=== PATIENT | male | born 1935 | race Caucasian/White ===

== ENCOUNTER 2018-08-18 10:36 | Inpatient (IN) ==
[2018-08-18] MEDS ORDERED: MAGNESIUM SULF RIDER 2 GM in PREMIX 1 EACH IV PRN (10:50)
[2018-08-18] MEDS ORDERED: MAGNESIUM SULF RIDER 4 GM in PREMIX 1 EACH IV PRN (10:50)
[2018-08-18] MEDS ORDERED: POTASSIUM CHLORIDE 20 MEQ TABLET PO PRN (10:50)
[2018-08-18] MEDS ORDERED: MORPHINE 4 MG/1 ML VIAL IV PRN (10:50)
[2018-08-18] MEDS ORDERED: ACETAMINOPHEN 325 MG TABLET PO PRN (10:50)
[2018-08-18] MEDS ORDERED: AMIODARONE INJ 450 MG in DEXTROSE 5% 241 ML IV SCH ×2 (12:00→18:00)
[2018-08-18] MEDS ORDERED: ASPIRIN CHEW 81 MG TABLET PO ONE (12:00)
[2018-08-18] MEDS ORDERED: HEPARIN/NACL 0.9% 2 UNITS/ML 1,000 ML IV ONE (12:01)
[2018-08-18] MEDS ORDERED: MIDAZOLAM 2 MG/2 ML VIAL ONE (12:12)
[2018-08-18] MEDS ORDERED: fentaNYL 100 MCG/2 ML VIAL ONE (12:12)
[2018-08-18] MEDS ORDERED: AMIODARONE INJ 150 MG in DEXTROSE 5% 100 ML IV ONE (12:15)
[2018-08-18] MEDS ORDERED: METOPROLOL TARTRATE 5 MG/5 ML VIAL IV ONE (12:26)
[2018-08-18] MEDS ORDERED: AMIODARONE 150 MG/3 ML VIAL ONE (12:48)
[2018-08-18] MEDS ORDERED: PHENYLEPHRINE 50 MG/5 ML VIAL ONE (12:49)
[2018-08-18] MEDS ORDERED: LIDOCAINE 1% 20 ML VIAL ONE (13:25)
[2018-08-18] MEDS ORDERED: DOBUTamine 500 MG/250 ML PREMIX IV PRN (13:52)
[2018-08-18 15:15] LABS: Basophils % 0.4 % (0.0-0.8); Eosinophils # 0.1 10*3/uL (0.0-0.87); Eosinophils % 0.5 % (0.00-10.9); Hematocrit 34.4 VOL% (42.0-52.0); Hemoglobin 10.5 GM/DL (14.0-18.0); Immature Granulocytes % 0.5 %; Immature Granulocytes Absolute 0.05 #; Lymphocytes # 1.8 10*3/uL (1.4-4.0); Lymphocytes % 18.2 % (21.2-54.2); Mean Corpuscular HGB Conc 30.5 GM/DL (32-36); Mean Corpuscular Hemoglobin 30 PG (27-34); Mean Corpuscular Volume 96.6 FL (87-102); Mean Platelet Volume 9.7 FL (9.6-12.0); Monocytes # 1.1 10*3/uL (0.11-0.8); Monocytes % 11.3 % (1.7-12.7); Neutrophils # 6.9 10*3/uL (1.4-7.4); Neutrophils % 69.1 % (38.7-73.9); Platelet Count 179 T/CUMM (130-400); Red Blood Count 3.56 MC/CUMM (3.8-5.5); Red Cell Distribution Width 15.2 % (9.3-17.3); White Blood Count 10.1 T/CUMM (4-12)
[2018-08-18 15:46] LABS: Bilirubin,Total 1.7 MG/DL (0.2-1.0); Calcium 8.3 MG/DL (8.5-10.1); Osmolality,Calculated 278.2 MOS/KG (273-304); Potassium 4.6 MMOL/L (3.5-5.1); Total Protein 6.7 G/DL (6.4-8.3)
[2018-08-18] MEDS: ONDANSETRON 4 MG/2 ML VIAL IV PRN ×2 (17:07→21:31)
[2018-08-18] MEDS ORDERED: RIVAROXABAN 20 MG TABLET PO SCH (21:00)
[2018-08-18] MEDS ORDERED: AMIODARONE 200 MG TABLET PO SCH (21:00)
[2018-08-19] MEDS: PANTOPRAZOLE 40 MG TABLET PO SCH ×2 (01:16→08:51)
[2018-08-19 05:00] LABS: Basophils % 0.1 % (0.0-0.8); Hematocrit 35.1 VOL% (42.0-52.0); Hemoglobin 10.7 GM/DL (14.0-18.0); Immature Granulocytes % 0.9 %; Immature Granulocytes Absolute 0.15 #; Lymphocytes # 0.9 10*3/uL (1.4-4.0); Lymphocytes % 5.2 % (21.2-54.2); Mean Corpuscular HGB Conc 30.5 GM/DL (32-36); Mean Corpuscular Hemoglobin 30 PG (27-34); Mean Corpuscular Volume 98.3 FL (87-102); Mean Platelet Volume 10.6 FL (9.6-12.0); Monocytes # 1.5 10*3/uL (0.11-0.8); Monocytes % 8.7 % (1.7-12.7); Neutrophils # 14.3 10*3/uL (1.4-7.4); Neutrophils % 85.1 % (38.7-73.9); Platelet Count 134 T/CUMM (130-400); Red Blood Count 3.57 MC/CUMM (3.8-5.5); Red Cell Distribution Width 15.3 % (9.3-17.3); White Blood Count 16.9 T/CUMM (4-12)
[2018-08-19 05:47] LABS: Albumin 3.3 G/DL (3.4-5.0); Bilirubin,Total 3.7 MG/DL (0.2-1.0); Calcium 8.7 MG/DL (8.5-10.1); Osmolality,Calculated 282.1 MOS/KG (273-304); Potassium 5.6 MMOL/L (3.5-5.1); Risk Ratio 2.83; Total Protein 6.9 G/DL (6.4-8.3); VLDL CHOLESTEROL 13.6 MG/DL
[2018-08-19] MEDS ORDERED: CARVEDILOL 6.25 MG TABLET PO SCH ×2 (08:30→17:00)
[2018-08-19] MEDS: SERTRALINE 50 MG TABLET PO SCH (08:51)
[2018-08-19] MEDS ORDERED: ASPIRIN CHEW 81 MG TABLET PO SCH (09:00)
[2018-08-19] MEDS: ALBUTEROL/IPRATROPIUM 3 ML NEB RESP TX SCH ×3 (09:08→19:19)
[2018-08-19 09:36] LABS: Apearance,Urine Slightly Hazy (Clear); Bilirubin,Urine Negative (Negative); Blood, Urine Moderate mg/dL (Negative); Glucose,Urine (UA) Negative (Negative); Ketones,Urine Negative (Negative); Mucus,Urine Occasional /LPF (Occasional); Nitrite,Urine Negative (Negative); Protein,Urine 100 MG/DL; RBC,Urine 2 /HPF (0-4); Urine Color Amber (Yellow); Urine Urobilinogen < 2.0 EU/DL (0.2-1.0); WBC,Urine <1 /HPF (0-6)
[2018-08-19] MEDS: CAPTOPRIL 6.25 MG TABLET PO SCH (09:42)
[2018-08-19] MEDS: AMIODARONE 200 MG TABLET PO SCH ×2 (09:43→21:09)
[2018-08-19] MEDS: SODIUM CHLORIDE 0.9% 1,000 ML IV SCH (09:45)
[2018-08-19] MEDS: INSULIN REGULAR 100 UNIT/ML SUBCUT SCH ×3 (11:31→21:09)
[2018-08-19] MEDS ORDERED: GLUCAGON 1 MG VIAL IM PRN (14:38)
[2018-08-19] MEDS ORDERED: DEXTROSE 50% 25 GM/50 ML VIAL IV PRN (14:38)
[2018-08-19 15:37] LABS: Troponin I 0.421 NG/ML (0.00-0.045)
[2018-08-19] MEDS: CARVEDILOL 3.125 MG TABLET PO SCH (21:09)
[2018-08-19] MEDS: APIXABAN 2.5 MG TABLET PO SCH (21:09)
[2018-08-19] MEDS ORDERED: CARVEDILOL 3.125 MG TABLET PO SCH (22:00)
[2018-08-20] MEDS: ALBUTEROL/IPRATROPIUM 3 ML NEB RESP TX SCH ×4 (01:01→19:14)
[2018-08-20 04:23] LABS: Hematocrit 28.1 VOL% (42.0-52.0); Immature Granulocytes % 1.1 %; Immature Granulocytes Absolute 0.13 #; Lymphocytes # 1.1 10*3/uL (1.4-4.0); Lymphocytes % 9.9 % (21.2-54.2); Mean Corpuscular Hemoglobin 30 PG (27-34); Mean Corpuscular Volume 93.4 FL (87-102); Mean Platelet Volume 11.6 FL (9.6-12.0); Monocytes # 0.9 10*3/uL (0.11-0.8); Monocytes % 8.3 % (1.7-12.7); NRBC # 0.02 10*3/uL; Neutrophils # 9.1 10*3/uL (1.4-7.4); Neutrophils % 80.7 % (38.7-73.9); Platelet Count 58 T/CUMM (130-400); Red Blood Count 3.01 MC/CUMM (3.8-5.5); Red Cell Distribution Width 15.2 % (9.3-17.3); White Blood Count 11.3 T/CUMM (4-12)
[2018-08-20 04:53] LABS: Lymphocytes 3 % (20-55); Segmented Neutrophils 94 % (50-85); Total Cells Counted 100
[2018-08-20 04:54] LABS: Hypochromasia Slight; Platelet Estimate Decreased; Polychromasia Few
[2018-08-20 04:57] LABS: Albumin 2.9 G/DL (3.4-5.0); Bilirubin,Total 1.5 MG/DL (0.2-1.0); Osmolality,Calculated 273.7 MOS/KG (273-304); Potassium 4.8 MMOL/L (3.5-5.1); Total Protein 6.2 G/DL (6.4-8.3)
[2018-08-20] MEDS: DOCUSATE SODIUM 100 MG CAPSULE PO PRN ×2 (08:00→21:20)
[2018-08-20] MEDS: ASPIRIN CHEW 81 MG TABLET PO SCH (08:00)
[2018-08-20] MEDS: APIXABAN 2.5 MG TABLET PO SCH ×2 (08:00→21:23)
[2018-08-20] MEDS: AMIODARONE 200 MG TABLET PO SCH ×2 (08:00→21:22)
[2018-08-20] MEDS: SERTRALINE 50 MG TABLET PO SCH (08:00)
[2018-08-20] MEDS: PANTOPRAZOLE 40 MG TABLET PO SCH (08:00)
[2018-08-20] MEDS: INSULIN REGULAR 100 UNIT/ML SUBCUT SCH ×4 (08:01→21:23)
[2018-08-20] MEDS: CARVEDILOL 3.125 MG TABLET PO SCH ×2 (08:01→21:21)
[2018-08-20] MEDS: CAPTOPRIL 6.25 MG TABLET PO SCH (08:01)
[2018-08-20] MEDS: SODIUM CHLORIDE 0.9% 1,000 ML IV SCH (09:19)
[2018-08-20] MEDS: PSYLLIUM POWDER 3.7 GM/PACK PO SCH (14:40)
[2018-08-20] MEDS: POLYETHYLENE GLYCOL POWDER 17 GM PACK PO SCH (14:43)
[2018-08-20] MEDS: MAGNESIUM CHLORIDE 64 MG TABLET PO SCH (21:20)
[2018-08-21 07:03] LABS: Basophils % 0.2 % (0.0-0.8); Eosinophils # 0.1 10*3/uL (0.0-0.87); Eosinophils % 0.8 % (0.00-10.9); Hemoglobin 9.6 GM/DL (14.0-18.0); Immature Granulocytes % 1.4 %; Immature Granulocytes Absolute 0.12 #; Lymphocytes % 11.6 % (21.2-54.2); Mean Corpuscular Hemoglobin 30 PG (27-34); Mean Corpuscular Volume 93.2 FL (87-102); Mean Platelet Volume 11.3 FL (9.6-12.0); Monocytes # 0.9 10*3/uL (0.11-0.8); Monocytes % 10.6 % (1.7-12.7); NRBC # 0.03 10*3/uL; Neutrophils # 6.6 10*3/uL (1.4-7.4); Neutrophils % 75.4 % (38.7-73.9); Red Blood Count 3.22 MC/CUMM (3.8-5.5); Red Cell Distribution Width 15.2 % (9.3-17.3); White Blood Count 8.8 T/CUMM (4-12)
[2018-08-21 07:10] LABS: Platelet Count 36 T/CUMM (130-400)
[2018-08-21 07:28] LABS: Albumin 2.9 G/DL (3.4-5.0); Bilirubin,Total 1.4 MG/DL (0.2-1.0); Calcium 8.1 MG/DL (8.5-10.1); Osmolality,Calculated 274.1 MOS/KG (273-304); Potassium 4.4 MMOL/L (3.5-5.1); Total Protein 6.3 G/DL (6.4-8.3)
[2018-08-21 07:40] LABS: Hypochromasia 1+
[2018-08-21 07:41] LABS: Anisocytosis 1+; Burr Cells Slight; Microcytosis 1+; Ovalocytes Slight; Polychromasia Slight
[2018-08-21 07:42] LABS: Platelet Estimate Decreased
[2018-08-21] MEDS: ALBUTEROL/IPRATROPIUM 3 ML NEB RESP TX SCH ×4 (07:59→20:10)
[2018-08-21] MEDS ORDERED: methylPREDNISolone SOD SUC 125 MG/2 ML VIAL IV ONE (08:45)
[2018-08-21] MEDS ORDERED: BISACODYL 5 MG TABLET PO ONE (09:07)
[2018-08-21] MEDS: ASPIRIN CHEW 81 MG TABLET PO SCH (09:17)
[2018-08-21] MEDS: MAGNESIUM CHLORIDE 64 MG TABLET PO SCH ×2 (09:17→21:41)
[2018-08-21] MEDS: CARVEDILOL 3.125 MG TABLET PO SCH ×2 (09:17→21:41)
[2018-08-21] MEDS: PANTOPRAZOLE 40 MG TABLET PO SCH (09:17)
[2018-08-21] MEDS: POLYETHYLENE GLYCOL POWDER 17 GM PACK PO SCH (09:18)
[2018-08-21] MEDS: INSULIN REGULAR 100 UNIT/ML SUBCUT SCH ×4 (11:59→21:40)
[2018-08-21] MEDS: SODIUM CHLORIDE 0.9% 1,000 ML IV SCH (12:00)
[2018-08-21] MEDS: CLORAZEPATE 3.75 MG TABLET PO PRN ×2 (15:12→21:40)
[2018-08-21] MEDS: PSYLLIUM POWDER 3.7 GM/PACK PO SCH (15:12)
[2018-08-21] MEDS: methylPREDNISolone SOD SUC 125 MG/2 ML VIAL IV SCH ×2 (17:29→21:40)
[2018-08-22] MEDS: ALBUTEROL/IPRATROPIUM 3 ML NEB RESP TX SCH ×4 (00:10→19:29)
[2018-08-22 04:37] LABS: Basophils % 0.1 % (0.0-0.8); Hematocrit 29.1 VOL% (42.0-52.0); Hemoglobin 9.7 GM/DL (14.0-18.0); Immature Granulocytes % 1.3 %; Lymphocytes # 0.5 10*3/uL (1.4-4.0); Lymphocytes % 6.9 % (21.2-54.2); Mean Corpuscular HGB Conc 33.3 GM/DL (32-36); Mean Corpuscular Hemoglobin 31 PG (27-34); Mean Corpuscular Volume 91.8 FL (87-102); Mean Platelet Volume 12.1 FL (9.6-12.0); Monocytes # 0.5 10*3/uL (0.11-0.8); Monocytes % 6.4 % (1.7-12.7); Neutrophils # 6.7 10*3/uL (1.4-7.4); Neutrophils % 85.3 % (38.7-73.9); Red Blood Count 3.17 MC/CUMM (3.8-5.5); Red Cell Distribution Width 14.9 % (9.3-17.3); White Blood Count 7.8 T/CUMM (4-12)
[2018-08-22 04:49] LABS: Platelet Count 33 T/CUMM (130-400)
[2018-08-22 05:05] LABS: Albumin 2.7 G/DL (3.4-5.0); Bilirubin,Direct 0.66 MG/DL (0.0-0.20); Bilirubin,Total 1.7 MG/DL (0.2-1.0); Calcium 8.1 MG/DL (8.5-10.1); Osmolality,Calculated 282.5 MOS/KG (273-304); Potassium 4.6 MMOL/L (3.5-5.1); Total Protein 6.2 G/DL (6.4-8.3)
[2018-08-22 05:06] LABS: Albumin 2.7 G/DL (3.4-5.0); Bilirubin,Total 1.8 MG/DL (0.2-1.0); Calcium 8.3 MG/DL (8.5-10.1); Osmolality,Calculated 283.5 MOS/KG (273-304); Potassium 4.6 MMOL/L (3.5-5.1); Total Protein 6.1 G/DL (6.4-8.3)
[2018-08-22 05:41] LABS: Platelet Estimate Decreased
[2018-08-22 05:42] LABS: Anisocytosis 1+; Hypochromasia 2+; Macrocytosis 1+; Ovalocytes 1+; Polychromasia Few; Target Cells 1+
[2018-08-22] MEDS ORDERED: MAGNESIUM CITRATE 300 ML BOTTLE PO ONE (08:56)
[2018-08-22] MEDS ORDERED: BISACODYL 5 MG TABLET PO ONE (08:58)
[2018-08-22] MEDS: methylPREDNISolone SOD SUC 125 MG/2 ML VIAL IV SCH ×4 (09:39→21:22)
[2018-08-22] MEDS: ASPIRIN CHEW 81 MG TABLET PO SCH (09:42)
[2018-08-22] MEDS: DOCUSATE SODIUM 100 MG CAPSULE PO SCH ×2 (09:42→21:21)
[2018-08-22] MEDS: CARVEDILOL 3.125 MG TABLET PO SCH ×2 (09:42→21:21)
[2018-08-22] MEDS: PANTOPRAZOLE 40 MG TABLET PO SCH (09:42)
[2018-08-22] MEDS: INSULIN REGULAR 100 UNIT/ML SUBCUT SCH ×4 (09:59→21:21)
[2018-08-22] MEDS: POLYETHYLENE GLYCOL POWDER 17 GM PACK PO SCH (09:59)
[2018-08-22] MEDS: PSYLLIUM POWDER 3.7 GM/PACK PO SCH (09:59)
[2018-08-23] MEDS: ALBUTEROL/IPRATROPIUM 3 ML NEB RESP TX SCH ×4 (00:52→18:55)
[2018-08-23] MEDS: ZALEPLON 5 MG CAPSULE PO PRN (01:08)
[2018-08-23 02:46] LABS: Hematocrit 27.7 VOL% (42.0-52.0); Hemoglobin 9.2 GM/DL (14.0-18.0); Immature Granulocytes Absolute 0.12 #; Lymphocytes # 0.4 10*3/uL (1.4-4.0); Lymphocytes % 3.3 % (21.2-54.2); Mean Corpuscular HGB Conc 33.2 GM/DL (32-36); Mean Corpuscular Hemoglobin 31 PG (27-34); Mean Corpuscular Volume 92.3 FL (87-102); Mean Platelet Volume 12.8 FL (9.6-12.0); Monocytes # 1.1 10*3/uL (0.11-0.8); Monocytes % 8.9 % (1.7-12.7); NRBC # 0.24 10*3/uL; Neutrophils # 10.2 10*3/uL (1.4-7.4); Neutrophils % 86.8 % (38.7-73.9); Red Cell Distribution Width 15.3 % (9.3-17.3); White Blood Count 11.8 T/CUMM (4-12)
[2018-08-23 02:48] LABS: Platelet Count 51 T/CUMM (130-400)
[2018-08-23 03:07] LABS: Albumin 2.7 G/DL (3.4-5.0); Bilirubin,Total 1.4 MG/DL (0.2-1.0); Calcium 8.1 MG/DL (8.5-10.1); Osmolality,Calculated 294.7 MOS/KG (273-304); Potassium 4.7 MMOL/L (3.5-5.1)
[2018-08-23 03:13] LABS: Band Neutrophils 1 % (0-10); Lymphocytes 4 % (20-55); Nucleated Red Blood Cells 4 (0-5); Promyelocytes 1 %; Segmented Neutrophils 90 % (50-85); Total Cells Counted 100
[2018-08-23 03:14] LABS: Albumin 2.6 G/DL (3.4-5.0); Bilirubin,Direct 0.47 MG/DL (0.0-0.20); Bilirubin,Indirect 0.9 MG/DL (0.0-1.0); Bilirubin,Total 1.4 MG/DL (0.2-1.0); Hypochromasia Slight; Osmolality,Calculated 293.7 MOS/KG (273-304); Ovalocytes 1+; Platelet Estimate Decreased; Polychromasia Few; Potassium 4.7 MMOL/L (3.5-5.1); Total Protein 5.9 G/DL (6.4-8.3)
[2018-08-23] MEDS: methylPREDNISolone SOD SUC 125 MG/2 ML VIAL IV SCH ×3 (04:44→21:29)
[2018-08-23] MEDS: INSULIN REGULAR 100 UNIT/ML SUBCUT SCH ×4 (08:21→21:31)
[2018-08-23] MEDS: POLYETHYLENE GLYCOL POWDER 17 GM PACK PO SCH (08:22)
[2018-08-23] MEDS: PSYLLIUM POWDER 3.7 GM/PACK PO SCH (08:22)
[2018-08-23] MEDS: DOCUSATE SODIUM 100 MG CAPSULE PO SCH ×2 (08:23→21:30)
[2018-08-23] MEDS: CARVEDILOL 3.125 MG TABLET PO SCH ×2 (08:23→21:30)
[2018-08-23] MEDS: PANTOPRAZOLE 40 MG TABLET PO SCH (08:23)
[2018-08-23] MEDS: LACTULOSE 20 GM/30 ML UDCUP PO SCH ×3 (08:27→21:30)
[2018-08-23] MEDS: ASPIRIN CHEW 81 MG TABLET PO SCH (08:27)
[2018-08-23] MEDS: INSULIN GLARGINE 100 UNIT/ML SUBCUT SCH (21:31)
[2018-08-24] MEDS: ALBUTEROL/IPRATROPIUM 3 ML NEB RESP TX SCH ×4 (00:23→19:08)
[2018-08-24] MEDS: LACTULOSE 20 GM/30 ML UDCUP PO SCH ×4 (02:05→21:02)
[2018-08-24 03:38] LABS: Basophils % 0.1 % (0.0-0.8); Hematocrit 26.9 VOL% (42.0-52.0); Hemoglobin 8.9 GM/DL (14.0-18.0); Immature Granulocytes % 0.9 %; Lymphocytes # 0.4 10*3/uL (1.4-4.0); Lymphocytes % 3.7 % (21.2-54.2); Mean Corpuscular HGB Conc 33.1 GM/DL (32-36); Mean Corpuscular Hemoglobin 30 PG (27-34); Mean Corpuscular Volume 91.8 FL (87-102); Mean Platelet Volume 11.6 FL (9.6-12.0); Monocytes # 1.1 10*3/uL (0.11-0.8); Monocytes % 9.2 % (1.7-12.7); NRBC # 0.27 10*3/uL; Neutrophils % 86.1 % (38.7-73.9); Platelet Count 66 T/CUMM (130-400); Red Blood Count 2.93 MC/CUMM (3.8-5.5); Red Cell Distribution Width 15.6 % (9.3-17.3); White Blood Count 11.6 T/CUMM (4-12)
[2018-08-24 03:56] LABS: Calcium 8.3 MG/DL (8.5-10.1); Potassium 4.2 MMOL/L (3.5-5.1)
[2018-08-24 06:44] LABS: Band Neutrophils 1 % (0-10); Lymphocytes 7 % (20-55); Nucleated Red Blood Cells 4 (0-5); Platelet Estimate Decreased; Segmented Neutrophils 88 % (50-85); Total Cells Counted 100
[2018-08-24 06:45] LABS: Hypochromasia 1+; Ovalocytes Slight
[2018-08-24] MEDS: INSULIN REGULAR 100 UNIT/ML SUBCUT SCH ×4 (08:03→21:05)
[2018-08-24] MEDS: ASPIRIN CHEW 81 MG TABLET PO SCH (08:04)
[2018-08-24] MEDS: PANTOPRAZOLE 40 MG TABLET PO SCH (08:04)
[2018-08-24] MEDS: PSYLLIUM POWDER 3.7 GM/PACK PO SCH (08:04)
[2018-08-24] MEDS: POLYETHYLENE GLYCOL POWDER 17 GM PACK PO SCH (08:04)
[2018-08-24] MEDS: DOCUSATE SODIUM 100 MG CAPSULE PO SCH ×2 (08:04→21:03)
[2018-08-24] MEDS: CARVEDILOL 3.125 MG TABLET PO SCH ×2 (08:04→21:03)
[2018-08-24] MEDS: methylPREDNISolone SOD SUC 125 MG/2 ML VIAL IV SCH ×2 (08:04→21:10)
[2018-08-24] MEDS ORDERED: AMIODARONE INJ 150 MG in DEXTROSE 5% 100 ML IV ONE (08:26)
[2018-08-24] MEDS ORDERED: AMIODARONE INJ 450 MG in DEXTROSE 5% 241 ML IV SCH (09:00)
[2018-08-24] MEDS ORDERED: AMIODARONE 200 MG TABLET PO SCH (09:00)
[2018-08-24] MEDS: AMIODARONE 200 MG TABLET PO SCH ×2 (15:38→21:03)
[2018-08-24] MEDS ORDERED: MAGNESIUM HYDROXIDE SUSP 30 ML UDCUP PO PRN (17:10)
[2018-08-24] MEDS ORDERED: diphenhydrAMINE CAP 25 MG CAPSULE PO PRN (17:10)
[2018-08-24] MEDS: INSULIN GLARGINE 100 UNIT/ML SUBCUT SCH (21:06)
[2018-08-25] MEDS: ALBUTEROL/IPRATROPIUM 3 ML NEB RESP TX SCH ×4 (00:24→19:44)
[2018-08-25] MEDS: LACTULOSE 20 GM/30 ML UDCUP PO SCH ×2 (01:52→17:03)
[2018-08-25 03:58] LABS: Basophils % 0.2 % (0.0-0.8); Hematocrit 32.2 VOL% (42.0-52.0); Hemoglobin 10.6 GM/DL (14.0-18.0); Immature Granulocytes % 1.2 %; Immature Granulocytes Absolute 0.18 #; Lymphocytes # 0.7 10*3/uL (1.4-4.0); Lymphocytes % 4.4 % (21.2-54.2); Mean Corpuscular HGB Conc 32.9 GM/DL (32-36); Mean Corpuscular Hemoglobin 31 PG (27-34); Mean Corpuscular Volume 92.5 FL (87-102); Mean Platelet Volume 11.5 FL (9.6-12.0); Monocytes # 1.7 10*3/uL (0.11-0.8); Monocytes % 11.3 % (1.7-12.7); NRBC # 0.83 10*3/uL; Neutrophils # 12.2 10*3/uL (1.4-7.4); Neutrophils % 82.9 % (38.7-73.9); Platelet Count 92 T/CUMM (130-400); Red Blood Count 3.48 MC/CUMM (3.8-5.5); Red Cell Distribution Width 15.9 % (9.3-17.3); White Blood Count 14.7 T/CUMM (4-12)
[2018-08-25 04:33] LABS: Bilirubin,Total 1.6 MG/DL (0.2-1.0); Calcium 8.5 MG/DL (8.5-10.1); Osmolality,Calculated 289.1 MOS/KG (273-304); Potassium 4.7 MMOL/L (3.5-5.1); Total Protein 6.5 G/DL (6.4-8.3)
[2018-08-25 04:48] LABS: Band Neutrophils 4 % (0-10); Lymphocytes 4 % (20-55); Nucleated Red Blood Cells 6 (0-5); Platelet Estimate Decreased; Segmented Neutrophils 82 % (50-85); Total Cells Counted 100
[2018-08-25] MEDS: methylPREDNISolone SOD SUC 125 MG/2 ML VIAL IV SCH (10:28)
[2018-08-25] MEDS: CARVEDILOL 3.125 MG TABLET PO SCH (10:48)
[2018-08-25] MEDS: POLYETHYLENE GLYCOL POWDER 17 GM PACK PO SCH (10:48)
[2018-08-25] MEDS: ASPIRIN CHEW 81 MG TABLET PO SCH (10:48)
[2018-08-25] MEDS: PSYLLIUM POWDER 3.7 GM/PACK PO SCH (10:48)
[2018-08-25] MEDS: DOCUSATE SODIUM 100 MG CAPSULE PO SCH ×2 (10:48→21:56)
[2018-08-25] MEDS: PANTOPRAZOLE 40 MG TABLET PO SCH (10:48)
[2018-08-25] MEDS: AMIODARONE 200 MG TABLET PO SCH ×2 (10:49→21:56)
[2018-08-25] MEDS: INSULIN REGULAR 100 UNIT/ML SUBCUT SCH ×4 (10:58→22:03)
[2018-08-25] MEDS ORDERED: LACTULOSE 20 GM/30 ML UDCUP PO PRN (14:17)
[2018-08-25] MEDS: CARVEDILOL 6.25 MG TABLET PO SCH ×2 (14:20→21:56)
[2018-08-25] MEDS: FUROSEMIDE 20 MG TABLET PO SCH (14:32)
[2018-08-25] MEDS: INSULIN GLARGINE 100 UNIT/ML SUBCUT SCH (22:03)
[2018-08-26] MEDS: ALBUTEROL/IPRATROPIUM 3 ML NEB RESP TX SCH ×4 (00:40→19:31)
[2018-08-26 03:47] LABS: Basophils % 0.1 % (0.0-0.8); Eosinophils # 0.1 10*3/uL (0.0-0.87); Eosinophils % 0.7 % (0.00-10.9); Hematocrit 28.4 VOL% (42.0-52.0); Hemoglobin 9.4 GM/DL (14.0-18.0); Immature Granulocytes % 0.9 %; Lymphocytes % 8.9 % (21.2-54.2); Mean Corpuscular HGB Conc 33.1 GM/DL (32-36); Mean Corpuscular Hemoglobin 30 PG (27-34); Mean Corpuscular Volume 91.3 FL (87-102); Mean Platelet Volume 10.9 FL (9.6-12.0); Monocytes # 0.6 10*3/uL (0.11-0.8); Monocytes % 5.3 % (1.7-12.7); NRBC # 0.13 10*3/uL; Neutrophils # 9.4 10*3/uL (1.4-7.4); Neutrophils % 84.1 % (38.7-73.9); Red Blood Count 3.11 MC/CUMM (3.8-5.5); Red Cell Distribution Width 15.5 % (9.3-17.3); White Blood Count 11.2 T/CUMM (4-12)
[2018-08-26 03:50] LABS: Platelet Count 90 T/CUMM (130-400)
[2018-08-26 03:53] LABS: Albumin 2.3 G/DL (3.4-5.0); Bilirubin,Total 2.2 MG/DL (0.2-1.0); Calcium 7.8 MG/DL (8.5-10.1); Osmolality,Calculated 283.8 MOS/KG (273-304); Potassium 3.7 MMOL/L (3.5-5.1); Total Protein 5.1 G/DL (6.4-8.3)
[2018-08-26 04:41] LABS: Hypochromasia 1+; Ovalocytes 1+; Platelet Estimate Decreased
[2018-08-26] MEDS: INSULIN REGULAR 100 UNIT/ML SUBCUT SCH ×4 (08:47→21:25)
[2018-08-26] MEDS: AMIODARONE 200 MG TABLET PO SCH ×2 (08:48→21:25)
[2018-08-26] MEDS: PANTOPRAZOLE 40 MG TABLET PO SCH (08:48)
[2018-08-26] MEDS: CARVEDILOL 6.25 MG TABLET PO SCH ×2 (08:48→21:25)
[2018-08-26] MEDS: ASPIRIN CHEW 81 MG TABLET PO SCH (08:48)
[2018-08-26] MEDS: POLYETHYLENE GLYCOL POWDER 17 GM PACK PO SCH (08:48)
[2018-08-26] MEDS: FUROSEMIDE 20 MG TABLET PO SCH (08:48)
[2018-08-26] MEDS: DOCUSATE SODIUM 100 MG CAPSULE PO SCH ×2 (08:48→21:25)
[2018-08-26] MEDS: PSYLLIUM POWDER 3.7 GM/PACK PO SCH (08:49)
[2018-08-26] MEDS ORDERED: methylPREDNISolone SOD SUC 40 MG/1 ML VIAL IV SCH (09:00)
[2018-08-26] MEDS: INSULIN GLARGINE 100 UNIT/ML SUBCUT SCH (21:25)
[2018-08-26] MEDS: ZALEPLON 5 MG CAPSULE PO PRN (21:28)
[2018-08-26] MEDS: CLORAZEPATE 3.75 MG TABLET PO PRN (21:28)
[2018-08-27] MEDS: ALBUTEROL/IPRATROPIUM 3 ML NEB RESP TX SCH ×4 (00:42→19:18)
[2018-08-27 05:45] LABS: Basophils % 0.2 % (0.0-0.8); Eosinophils # 0.1 10*3/uL (0.0-0.87); Eosinophils % 0.7 % (0.00-10.9); Hematocrit 28.1 VOL% (42.0-52.0); Hemoglobin 9.3 GM/DL (14.0-18.0); Immature Granulocytes Absolute 0.13 #; Lymphocytes # 1.1 10*3/uL (1.4-4.0); Lymphocytes % 8.4 % (21.2-54.2); Mean Corpuscular HGB Conc 33.1 GM/DL (32-36); Mean Corpuscular Hemoglobin 30 PG (27-34); Mean Corpuscular Volume 90.1 FL (87-102); Mean Platelet Volume 10.7 FL (9.6-12.0); Monocytes # 0.9 10*3/uL (0.11-0.8); Monocytes % 6.7 % (1.7-12.7); NRBC # 0.05 10*3/uL; Neutrophils # 10.8 10*3/uL (1.4-7.4); Platelet Count 103 T/CUMM (130-400); Red Blood Count 3.12 MC/CUMM (3.8-5.5); Red Cell Distribution Width 15.3 % (9.3-17.3)
[2018-08-27 06:14] LABS: Albumin 2.2 G/DL (3.4-5.0); Bilirubin,Total 1.5 MG/DL (0.2-1.0); Calcium 7.9 MG/DL (8.5-10.1); Osmolality,Calculated 288.7 MOS/KG (273-304); Potassium 3.5 MMOL/L (3.5-5.1); Total Protein 5.2 G/DL (6.4-8.3)
[2018-08-27] MEDS: AMIODARONE 200 MG TABLET PO SCH ×2 (08:18→20:44)
[2018-08-27] MEDS: PSYLLIUM POWDER 3.7 GM/PACK PO SCH (08:18)
[2018-08-27] MEDS: CARVEDILOL 6.25 MG TABLET PO SCH ×2 (08:18→20:44)
[2018-08-27] MEDS: POLYETHYLENE GLYCOL POWDER 17 GM PACK PO SCH (08:18)
[2018-08-27] MEDS: FUROSEMIDE 20 MG TABLET PO SCH (08:19)
[2018-08-27] MEDS: CAPTOPRIL 6.25 MG TABLET PO SCH (08:19)
[2018-08-27] MEDS: ASPIRIN CHEW 81 MG TABLET PO SCH (08:19)
[2018-08-27] MEDS: PANTOPRAZOLE 40 MG TABLET PO SCH (08:19)
[2018-08-27] MEDS: DOCUSATE SODIUM 100 MG CAPSULE PO SCH ×2 (08:19→20:45)
[2018-08-27] MEDS: INSULIN REGULAR 100 UNIT/ML SUBCUT SCH ×4 (08:20→20:44)
[2018-08-27] MEDS: INSULIN GLARGINE 100 UNIT/ML SUBCUT SCH (20:44)
[2018-08-27] MEDS: ZALEPLON 5 MG CAPSULE PO PRN (20:50)
[2018-08-28] MEDS: ALBUTEROL/IPRATROPIUM 3 ML NEB RESP TX SCH ×4 (01:33→19:29)
[2018-08-28 04:02] LABS: Basophils % 0.2 % (0.0-0.8); Eosinophils # 0.7 10*3/uL (0.0-0.87); Eosinophils % 5.2 % (0.00-10.9); Hematocrit 30.1 VOL% (42.0-52.0); Immature Granulocytes % 1.5 %; Immature Granulocytes Absolute 0.18 #; Lymphocytes # 1.5 10*3/uL (1.4-4.0); Lymphocytes % 12.2 % (21.2-54.2); Mean Corpuscular HGB Conc 33.2 GM/DL (32-36); Mean Corpuscular Hemoglobin 30 PG (27-34); Mean Corpuscular Volume 91.5 FL (87-102); Mean Platelet Volume 10.2 FL (9.6-12.0); Monocytes # 1.1 10*3/uL (0.11-0.8); Monocytes % 8.5 % (1.7-12.7); NRBC # 0.02 10*3/uL; Neutrophils % 72.4 % (38.7-73.9); Platelet Count 124 T/CUMM (130-400); Red Blood Count 3.29 MC/CUMM (3.8-5.5); Red Cell Distribution Width 15.4 % (9.3-17.3); White Blood Count 12.4 T/CUMM (4-12)
[2018-08-28 04:23] LABS: Calcium 7.7 MG/DL (8.5-10.1); Osmolality,Calculated 277.1 MOS/KG (273-304); Potassium 3.5 MMOL/L (3.5-5.1)
[2018-08-28] MEDS: INSULIN REGULAR 100 UNIT/ML SUBCUT SCH ×4 (09:38→21:31)
[2018-08-28] MEDS: CARVEDILOL 6.25 MG TABLET PO SCH ×2 (09:39→21:30)
[2018-08-28] MEDS: FUROSEMIDE 20 MG TABLET PO SCH (09:39)
[2018-08-28] MEDS: PANTOPRAZOLE 40 MG TABLET PO SCH (09:39)
[2018-08-28] MEDS: ASPIRIN CHEW 81 MG TABLET PO SCH (09:39)
[2018-08-28] MEDS: DOCUSATE SODIUM 100 MG CAPSULE PO SCH ×2 (09:39→21:30)
[2018-08-28] MEDS: AMIODARONE 200 MG TABLET PO SCH ×2 (09:39→21:30)
[2018-08-28] MEDS: CAPTOPRIL 6.25 MG TABLET PO SCH (09:39)
[2018-08-28] MEDS: POLYETHYLENE GLYCOL POWDER 17 GM PACK PO SCH (09:42)
[2018-08-28] MEDS: PSYLLIUM POWDER 3.7 GM/PACK PO SCH (09:42)
[2018-08-28] MEDS: ZALEPLON 5 MG CAPSULE PO PRN (21:30)
[2018-08-28] MEDS: INSULIN GLARGINE 100 UNIT/ML SUBCUT SCH (21:31)
[2018-08-28] MEDS: LISINOPRIL 2.5 MG TABLET PO SCH (21:35)
[2018-08-29] MEDS: ALBUTEROL/IPRATROPIUM 3 ML NEB RESP TX SCH ×4 (01:27→19:01)
[2018-08-29 05:33] LABS: Basophils % 0.2 % (0.0-0.8); Eosinophils # 0.7 10*3/uL (0.0-0.87); Eosinophils % 5.7 % (0.00-10.9); Hematocrit 28.8 VOL% (42.0-52.0); Hemoglobin 9.2 GM/DL (14.0-18.0); Immature Granulocytes % 1.6 %; Immature Granulocytes Absolute 0.18 #; Lymphocytes # 1.3 10*3/uL (1.4-4.0); Lymphocytes % 11.2 % (21.2-54.2); Mean Corpuscular HGB Conc 31.9 GM/DL (32-36); Mean Corpuscular Hemoglobin 29 PG (27-34); Mean Corpuscular Volume 91.7 FL (87-102); Mean Platelet Volume 10.3 FL (9.6-12.0); Monocytes # 1.3 10*3/uL (0.11-0.8); Monocytes % 11.8 % (1.7-12.7); Neutrophils # 7.9 10*3/uL (1.4-7.4); Neutrophils % 69.5 % (38.7-73.9); Platelet Count 150 T/CUMM (130-400); Red Blood Count 3.14 MC/CUMM (3.8-5.5); Red Cell Distribution Width 15.4 % (9.3-17.3); White Blood Count 11.4 T/CUMM (4-12)
[2018-08-29 06:41] LABS: Calcium 7.1 MG/DL (8.5-10.1); Osmolality,Calculated 282.8 MOS/KG (273-304); Potassium 3.8 MMOL/L (3.5-5.1)
[2018-08-29] MEDS ORDERED: MAGNESIUM SULF RIDER 50 ML IV ONE (07:44)
[2018-08-29] MEDS: INSULIN REGULAR 100 UNIT/ML SUBCUT SCH ×5 (08:56→21:12)
[2018-08-29] MEDS ORDERED: MAGNESIUM CHLORIDE 64 MG TABLET PO SCH (09:00)
[2018-08-29] MEDS: FUROSEMIDE 20 MG TABLET PO SCH (09:37)
[2018-08-29] MEDS: PANTOPRAZOLE 40 MG TABLET PO SCH (09:37)
[2018-08-29] MEDS: DOCUSATE SODIUM 100 MG CAPSULE PO SCH ×2 (09:37→21:10)
[2018-08-29] MEDS: AMIODARONE 200 MG TABLET PO SCH ×2 (09:37→21:10)
[2018-08-29] MEDS: ASPIRIN CHEW 81 MG TABLET PO SCH (09:37)
[2018-08-29] MEDS: CARVEDILOL 6.25 MG TABLET PO SCH (09:38)
[2018-08-29] MEDS: POLYETHYLENE GLYCOL POWDER 17 GM PACK PO SCH (09:40)
[2018-08-29] MEDS: LISINOPRIL 2.5 MG TABLET PO SCH ×2 (09:40→21:11)
[2018-08-29] MEDS: PSYLLIUM POWDER 3.7 GM/PACK PO SCH (09:40)
[2018-08-29] MEDS: CARVEDILOL 12.5 MG TABLET PO SCH (16:19)
[2018-08-29] MEDS: ZALEPLON 5 MG CAPSULE PO PRN (21:11)
[2018-08-29] MEDS: INSULIN GLARGINE 100 UNIT/ML SUBCUT SCH (21:12)
[2018-08-30] MEDS: ALBUTEROL/IPRATROPIUM 3 ML NEB RESP TX SCH ×3 (00:16→13:10)
[2018-08-30 04:34] LABS: Basophils % 0.1 % (0.0-0.8); Eosinophils # 0.6 10*3/uL (0.0-0.87); Eosinophils % 4.8 % (0.00-10.9); Hematocrit 28.2 VOL% (42.0-52.0); Hemoglobin 9.1 GM/DL (14.0-18.0); Immature Granulocytes % 1.5 %; Immature Granulocytes Absolute 0.18 #; Lymphocytes # 1.6 10*3/uL (1.4-4.0); Lymphocytes % 13.7 % (21.2-54.2); Mean Corpuscular HGB Conc 32.3 GM/DL (32-36); Mean Corpuscular Hemoglobin 30 PG (27-34); Mean Corpuscular Volume 93.4 FL (87-102); Mean Platelet Volume 10.1 FL (9.6-12.0); Monocytes # 1.4 10*3/uL (0.11-0.8); Monocytes % 11.7 % (1.7-12.7); Neutrophils % 68.2 % (38.7-73.9); Platelet Count 161 T/CUMM (130-400); Red Blood Count 3.02 MC/CUMM (3.8-5.5); Red Cell Distribution Width 15.6 % (9.3-17.3); White Blood Count 11.7 T/CUMM (4-12)
[2018-08-30 04:58] LABS: Calcium 7.7 MG/DL (8.5-10.1); Osmolality,Calculated 280.7 MOS/KG (273-304); Potassium 3.8 MMOL/L (3.5-5.1)
[2018-08-30] MEDS ORDERED: AMIODARONE 200 MG TABLET PO SCH (09:00)
[2018-08-30] MEDS ORDERED: MAGNESIUM CHLORIDE 64 MG TABLET PO SCH (09:00)
[2018-08-30] MEDS: PANTOPRAZOLE 40 MG TABLET PO SCH (09:42)
[2018-08-30] MEDS: INSULIN REGULAR 100 UNIT/ML SUBCUT SCH ×3 (09:43→15:50)
[2018-08-30] MEDS: DOCUSATE SODIUM 100 MG CAPSULE PO SCH (09:43)
[2018-08-30] MEDS: ASPIRIN CHEW 81 MG TABLET PO SCH (09:43)
[2018-08-30] MEDS: CARVEDILOL 12.5 MG TABLET PO SCH (09:43)
[2018-08-30] MEDS: PSYLLIUM POWDER 3.7 GM/PACK PO SCH (09:44)
[2018-08-30] MEDS: POLYETHYLENE GLYCOL POWDER 17 GM PACK PO SCH (09:44)
[2018-08-30] MEDS: FUROSEMIDE 20 MG TABLET PO SCH (12:53)
[2018-08-30] MEDS ORDERED: FUROSEMIDE 40 MG TABLET PO SCH (13:37)
[2018-08-30] MEDS ORDERED: NITROGLYCERIN SL 0.4 MG TABLET SL PRN (13:37)
[2018-08-30 15:53] VITALS: BP 84/50
[2018-08-30] MEDS ORDERED: CAPTOPRIL 6.25 MG TABLET PO SCH (21:00)
[2018-08-30] MEDS ORDERED: FAMOTIDINE 20 MG TABLET PO SCH (21:00)
[2018-08-31] MEDS ORDERED: RIVAROXABAN 20 MG TABLET PO SCH (08:00)
[2018-08-31] MEDS ORDERED: NIACIN 500 MG TABLET PO SCH (09:00)
[2018-08-31] MEDS ORDERED: AMIODARONE 200 MG TABLET PO SCH (09:00)
== END 2018-08-30 16:30 | disposition home health service (06) | DRG 286 ==
LOC: N.2W 11:04 → N.CC 13:29 → N.TELES 08-20 15:47
PROVIDERS: ADMIT Internal Medicine Cardiovascular Disease; ATTEND Internal Medicine Cardiovascular Disease

== ENCOUNTER 2019-06-13 15:31 | Inpatient (IN) ==
[2019-06-13] MEDS ORDERED: PANTOPRAZOLE 40 MG VIAL IV STA (16:11)
[2019-06-13] MEDS ORDERED: SODIUM CHLORIDE 0.9% 1,000 ML IV PRN ×2 (16:12→17:23)
[2019-06-13 16:37] LABS: Basophils % 0.4 % (0.0-0.8); Eosinophils % 0.4 % (0.00-10.9); Hematocrit 19.3 VOL% (42.0-52.0); Immature Granulocytes % 0.6 %; Immature Granulocytes Absolute 0.05 #; Lymphocytes # 0.9 10*3/uL (1.4-4.0); Lymphocytes % 11.1 % (21.2-54.2); Mean Corpuscular HGB Conc 28.5 GM/DL (32-36); Mean Corpuscular Volume 90.2 FL (87-102); Mean Platelet Volume 9.8 FL (9.6-12.0); Monocytes % 8.2 % (1.7-12.7); NRBC # 0.08 10*3/uL; Neutrophils % 79.3 % (38.7-73.9); Platelet Count 217 T/CUMM (130-400); Red Blood Count 2.14 MC/CUMM (3.8-5.5); Red Cell Distribution Width 16.1 % (9.3-17.3); White Blood Count 7.8 T/CUMM (4-12)
[2019-06-13 16:39] LABS: Hemoglobin 5.5 GM/DL (14.0-18.0)
[2019-06-13] MEDS ORDERED: ACETAMINOPHEN 325 MG TABLET PO PRN (17:04)
[2019-06-13] MEDS ORDERED: ONDANSETRON 4 MG/2 ML VIAL IV PRN (17:04)
[2019-06-13 17:07] LABS: Hypochromasia 2+; Microcytosis 1+; Platelet Estimate Normal; Polychromasia Slight
[2019-06-13 17:08] LABS: Anisocytosis 1+; Ovalocytes Slight
[2019-06-13 17:25] LABS: Albumin 3.1 G/DL (3.4-5.0); Bilirubin,Total 0.9 MG/DL (0.2-1.0); Calcium 8.4 MG/DL (8.5-10.1); Osmolality,Calculated 285.8 MOS/KG (273-304); Total Protein 6.7 G/DL (6.4-8.3)
[2019-06-13] MEDS ORDERED: NITROGLYCERIN SL 0.4 MG TABLET SL PRN (17:25)
[2019-06-13] MEDS ORDERED: DEXTROSE 10% 250 ML BAG IV PRN (18:51)
[2019-06-13] MEDS ORDERED: GLUCAGON 1 MG VIAL IM PRN (18:51)
[2019-06-13] MEDS: MAGNESIUM CHLORIDE 64 MG TABLET PO SCH (20:41)
[2019-06-13] MEDS: LATANOPROST 0.005% OPH SOLN 2.5 ML BOTTLE BOTH EYES SCH (20:42)
[2019-06-13] MEDS: SERTRALINE 50 MG TABLET PO SCH (20:57)
[2019-06-13] MEDS ORDERED: FAMOTIDINE 20 MG TABLET PO SCH (21:00)
[2019-06-13] MEDS: INSULIN REGULAR 100 UNIT/ML SUBCUT SCH (22:15)
[2019-06-14 01:51] LABS: Hemoglobin 7.2 GM/DL (14.0-18.0)
[2019-06-14 02:04] LABS: Albumin 2.9 G/DL (3.4-5.0); Bilirubin,Total 1.1 MG/DL (0.2-1.0); Calcium 8.6 MG/DL (8.5-10.1); Osmolality,Calculated 294.5 MOS/KG (273-304); Total Protein 6.4 G/DL (6.4-8.3)
[2019-06-14] MEDS: LEVOTHYROXINE 75 MCG TABLET PO SCH (05:33)
[2019-06-14] MEDS ORDERED: SODIUM CHLORIDE 0.9% 1,000 ML IV PRN (06:36)
[2019-06-14] MEDS: INSULIN REGULAR 100 UNIT/ML SUBCUT SCH ×4 (08:10→22:21)
[2019-06-14 08:32] LABS: Hemoglobin 7.3 GM/DL (14.0-18.0)
[2019-06-14] MEDS ORDERED: PANTOPRAZOLE 40 MG TABLET PO SCH (09:00)
[2019-06-14] MEDS ORDERED: GLIMEPIRIDE 2 MG TABLET PO SCH (09:00)
[2019-06-14] MEDS ORDERED: AMIODARONE 200 MG TABLET PO SCH (09:00)
[2019-06-14] MEDS: PANTOPRAZOLE 40 MG VIAL IV SCH ×2 (10:33→21:17)
[2019-06-14] MEDS: CARVEDILOL 12.5 MG TABLET PO SCH ×2 (10:48→16:43)
[2019-06-14] MEDS: FUROSEMIDE 20 MG TABLET PO SCH (14:26)
[2019-06-14] MEDS: MAGNESIUM CHLORIDE 64 MG TABLET PO SCH ×2 (14:26→21:17)
[2019-06-14] MEDS: predniSONE 5 MG TABLET PO SCH (14:26)
[2019-06-14] MEDS ORDERED: FUROSEMIDE 40 MG/4 ML VIAL IV ONE (15:33)
[2019-06-14 17:33] LABS: Hematocrit 30.5 VOL% (42.0-52.0)
[2019-06-14 17:34] LABS: Hemoglobin 9.5 GM/DL (14.0-18.0)
[2019-06-14] MEDS: SERTRALINE 50 MG TABLET PO SCH (18:05)
[2019-06-14] MEDS: LATANOPROST 0.005% OPH SOLN 2.5 ML BOTTLE BOTH EYES SCH (21:20)
[2019-06-15] MEDS ORDERED: GLUCOSE GEL 15 GM TUBE PO PRN (03:11)
[2019-06-15] MEDS: LEVOTHYROXINE 75 MCG TABLET PO SCH (07:36)
[2019-06-15 08:11] LABS: Basophils % 0.1 % (0.0-0.8); Eosinophils % 0.1 % (0.00-10.9); Hematocrit 29.9 VOL% (42.0-52.0); Hemoglobin 9.3 GM/DL (14.0-18.0); Immature Granulocytes % 0.6 %; Immature Granulocytes Absolute 0.06 #; Lymphocytes % 9.1 % (21.2-54.2); Mean Corpuscular HGB Conc 31.1 GM/DL (32-36); Mean Corpuscular Volume 89.5 FL (87-102); Monocytes % 11.2 % (1.7-12.7); NRBC # 0.05 10*3/uL; Neutrophils % 78.9 % (38.7-73.9); Red Cell Distribution Width 15.8 % (9.3-17.3)
[2019-06-15 08:13] LABS: Platelet Count 164 T/CUMM (130-400); Red Blood Count 3.34 MC/CUMM (3.8-5.5); White Blood Count 10.4 T/CUMM (4-12)
[2019-06-15 08:34] LABS: Calcium 8.1 MG/DL (8.5-10.1); Osmolality,Calculated 290.5 MOS/KG (273-304); Thyroid Stimulating Hormone 2.73 uIU/ml (0.358-3.74)
[2019-06-15] MEDS ORDERED: GLYCOPYRROLATE 0.4 MG/2 ML VIAL ONE (09:00)
[2019-06-15] MEDS ORDERED: ETOMIDATE 20 MG/10 ML VIAL IV ONE (09:00)
[2019-06-15] MEDS ORDERED: LIDOCAINE 2% 5 ML VIAL ONE (09:00)
[2019-06-15] MEDS ORDERED: PROPOFOL 200 MG/20 ML VIAL IV ONE (09:00)
[2019-06-15 09:58] LABS: Apearance,Urine CLEAR (Clear); Bilirubin,Urine Negative (Negative); Blood, Urine Negative (Negative); Glucose,Urine (UA) Negative (Negative); Ketones,Urine Negative (Negative); Mucus,Urine Occasional /LPF (Occasional); Nitrite,Urine Negative (Negative); Protein,Urine Negative; RBC,Urine <1 /HPF (0-4); Squamous Epithelial Cell,Urine Occasional /HPF (0-10); Urine Color Yellow (Yellow); Urine Urobilinogen < 2.0 EU/DL (0.2-1.0)
[2019-06-15] MEDS: predniSONE 5 MG TABLET PO SCH (11:50)
[2019-06-15] MEDS: MAGNESIUM CHLORIDE 64 MG TABLET PO SCH ×2 (11:50→21:38)
[2019-06-15] MEDS: FUROSEMIDE 20 MG TABLET PO SCH (11:50)
[2019-06-15] MEDS: PANTOPRAZOLE 40 MG VIAL IV SCH ×2 (11:57→23:11)
[2019-06-15] MEDS ORDERED: POLYETHYLENE GLYCOL 3350/ELECTROLYTES 4,000 ML BOTTLE PEG ONE ×2 (14:21→18:00)
[2019-06-15] MEDS: BISACODYL 5 MG TABLET PO SCH ×2 (14:50→21:38)
[2019-06-15] MEDS ORDERED: POLYETHYLENE GLYCOL POWDER 255 GM BOTTLE PO ONE (18:00)
[2019-06-15] MEDS: SERTRALINE 50 MG TABLET PO SCH (18:02)
[2019-06-15] MEDS ORDERED: MAGNESIUM CITRATE 300 ML BOTTLE PO ONE (21:00)
[2019-06-15] MEDS: LATANOPROST 0.005% OPH SOLN 2.5 ML BOTTLE BOTH EYES SCH (21:46)
[2019-06-16] MEDS ORDERED: POLYETHYLENE GLYCOL 3350/ELECTROLYTES 4,000 ML BOTTLE NG ONE (06:30)
[2019-06-16] MEDS ORDERED: AMIODARONE 200 MG TABLET PO SCH (09:00)
[2019-06-16] MEDS: LEVOTHYROXINE 75 MCG TABLET PO SCH (10:06)
[2019-06-16] MEDS: MAGNESIUM CHLORIDE 64 MG TABLET PO SCH ×2 (10:12→22:18)
[2019-06-16] MEDS: BISACODYL 5 MG TABLET PO SCH (10:12)
[2019-06-16] MEDS: FUROSEMIDE 20 MG TABLET PO SCH (10:12)
[2019-06-16] MEDS: predniSONE 5 MG TABLET PO SCH (10:12)
[2019-06-16] MEDS: POTASSIUM CHLORIDE INJ 10 MEQ in DEXTROSE 5% 1,000 ML IV SCH ×2 (10:13→22:20)
[2019-06-16] MEDS: PANTOPRAZOLE 40 MG VIAL IV SCH ×2 (10:16→22:20)
[2019-06-16 11:03] LABS: Basophils % 0.2 % (0.0-0.8); Eosinophils # 0.2 10*3/uL (0.0-0.87); Eosinophils % 1.8 % (0.00-10.9); Hematocrit 29.9 VOL% (42.0-52.0); Hemoglobin 9.1 GM/DL (14.0-18.0); Immature Granulocytes % 0.4 %; Immature Granulocytes Absolute 0.04 #; Lymphocytes % 10.9 % (21.2-54.2); Mean Corpuscular HGB Conc 30.4 GM/DL (32-36); Mean Corpuscular Volume 90.3 FL (87-102); Mean Platelet Volume 9.7 FL (9.6-12.0); Monocytes % 14.3 % (1.7-12.7); NRBC # 0.04 10*3/uL; Neutrophils % 72.4 % (38.7-73.9); Platelet Count 161 T/CUMM (130-400); Red Blood Count 3.31 MC/CUMM (3.8-5.5); White Blood Count 9.5 T/CUMM (4-12)
[2019-06-16 11:25] LABS: Albumin 2.9 G/DL (3.4-5.0); Bilirubin,Total 0.9 MG/DL (0.2-1.0); Calcium 8.2 MG/DL (8.5-10.1); Osmolality,Calculated 284.5 MOS/KG (273-304); Total Protein 6.2 G/DL (6.4-8.3)
[2019-06-16] MEDS: SERTRALINE 50 MG TABLET PO SCH (18:38)
[2019-06-16] MEDS: LATANOPROST 0.005% OPH SOLN 2.5 ML BOTTLE BOTH EYES SCH (22:21)
[2019-06-17 05:11] LABS: Basophils % 0.1 % (0.0-0.8); Eosinophils # 0.2 10*3/uL (0.0-0.87); Eosinophils % 2.6 % (0.00-10.9); Hematocrit 27.9 VOL% (42.0-52.0); Hemoglobin 8.5 GM/DL (14.0-18.0); Immature Granulocytes % 0.8 %; Immature Granulocytes Absolute 0.06 #; Lymphocytes % 12.7 % (21.2-54.2); Mean Corpuscular HGB Conc 30.5 GM/DL (32-36); Mean Platelet Volume 10.2 FL (9.6-12.0); Monocytes % 15.6 % (1.7-12.7); NRBC # 0.04 10*3/uL; Neutrophils % 68.2 % (38.7-73.9); Platelet Count 147 T/CUMM (130-400); White Blood Count 7.8 T/CUMM (4-12)
[2019-06-17 05:32] LABS: Albumin 2.7 G/DL (3.4-5.0); Bilirubin,Total 1.2 MG/DL (0.2-1.0); Calcium 7.7 MG/DL (8.5-10.1); Osmolality,Calculated 280.8 MOS/KG (273-304); Total Protein 5.7 G/DL (6.4-8.3)
[2019-06-17 05:35] LABS: Eosinophils 1 % (0-10); Lymphocytes 10 % (20-55); Nucleated Red Blood Cells 2 (0-5); Segmented Neutrophils 79 % (50-85); Total Cells Counted 100
[2019-06-17 05:36] LABS: Anisocytosis 1+; Hypochromasia 1+; Microcytosis 1+; Ovalocytes Slight; Polychromasia Slight
[2019-06-17 05:37] LABS: Platelet Estimate Adequate
[2019-06-17] MEDS: LEVOTHYROXINE 75 MCG TABLET PO SCH (07:33)
[2019-06-17] MEDS ORDERED: LIDOCAINE 2% 5 ML VIAL ONE (10:00)
[2019-06-17] MEDS ORDERED: ETOMIDATE 20 MG/10 ML VIAL IV ONE (10:00)
[2019-06-17] MEDS ORDERED: GLYCOPYRROLATE 0.4 MG/2 ML VIAL ONE (10:00)
[2019-06-17] MEDS ORDERED: PROPOFOL 200 MG/20 ML VIAL IV ONE (10:00)
[2019-06-17] MEDS: PANTOPRAZOLE 40 MG VIAL IV SCH (10:49)
[2019-06-17] MEDS: FUROSEMIDE 20 MG TABLET PO SCH (13:43)
[2019-06-17] MEDS: predniSONE 5 MG TABLET PO SCH (13:44)
[2019-06-17] MEDS: MAGNESIUM CHLORIDE 64 MG TABLET PO SCH ×2 (13:44→21:18)
[2019-06-17] MEDS: POTASSIUM CHLORIDE INJ 10 MEQ in DEXTROSE 5% 1,000 ML IV SCH (13:46)
[2019-06-17] MEDS: INSULIN REGULAR 100 UNIT/ML SUBCUT SCH ×2 (17:12→21:19)
[2019-06-17] MEDS: SERTRALINE 50 MG TABLET PO SCH (19:03)
[2019-06-17] MEDS: TAMSULOSIN 0.4 MG CAPSULE PO SCH (21:18)
[2019-06-17] MEDS: PANTOPRAZOLE 40 MG TABLET PO SCH (21:18)
[2019-06-17] MEDS: LATANOPROST 0.005% OPH SOLN 2.5 ML BOTTLE BOTH EYES SCH (21:19)
[2019-06-18 04:58] LABS: Basophils % 0.2 % (0.0-0.8); Eosinophils # 0.2 10*3/uL (0.0-0.87); Eosinophils % 2.2 % (0.00-10.9); Hematocrit 28.6 VOL% (42.0-52.0); Hemoglobin 8.7 GM/DL (14.0-18.0); Immature Granulocytes % 0.4 %; Immature Granulocytes Absolute 0.04 #; Lymphocytes # 1.1 10*3/uL (1.4-4.0); Lymphocytes % 12.1 % (21.2-54.2); Mean Corpuscular HGB Conc 30.4 GM/DL (32-36); Mean Corpuscular Volume 90.2 FL (87-102); Monocytes % 14.8 % (1.7-12.7); Neutrophils % 70.3 % (38.7-73.9); Platelet Count 135 T/CUMM (130-400); Red Blood Count 3.17 MC/CUMM (3.8-5.5); White Blood Count 8.9 T/CUMM (4-12)
[2019-06-18 05:23] LABS: Albumin 2.7 G/DL (3.4-5.0); Calcium 8.1 MG/DL (8.5-10.1); Osmolality,Calculated 279.7 MOS/KG (273-304); Total Protein 5.9 G/DL (6.4-8.3)
[2019-06-18] MEDS: MAGNESIUM CHLORIDE 64 MG TABLET PO SCH ×2 (09:00→21:49)
[2019-06-18] MEDS: PANTOPRAZOLE 40 MG TABLET PO SCH ×2 (09:01→21:48)
[2019-06-18] MEDS: predniSONE 5 MG TABLET PO SCH (09:01)
[2019-06-18] MEDS: LEVOTHYROXINE 75 MCG TABLET PO SCH (09:01)
[2019-06-18] MEDS: FUROSEMIDE 20 MG TABLET PO SCH (09:03)
[2019-06-18] MEDS: INSULIN REGULAR 100 UNIT/ML SUBCUT SCH ×4 (09:04→22:32)
[2019-06-18] MEDS: TAMSULOSIN 0.4 MG CAPSULE PO SCH (21:48)
[2019-06-18] MEDS: SERTRALINE 50 MG TABLET PO SCH (21:48)
[2019-06-18] MEDS: LATANOPROST 0.005% OPH SOLN 2.5 ML BOTTLE BOTH EYES SCH (21:49)
[2019-06-19 05:26] LABS: Basophils % 0.3 % (0.0-0.8); Eosinophils # 0.2 10*3/uL (0.0-0.87); Hematocrit 28.2 VOL% (42.0-52.0); Hemoglobin 8.6 GM/DL (14.0-18.0); Immature Granulocytes % 0.5 %; Immature Granulocytes Absolute 0.04 #; Lymphocytes # 1.2 10*3/uL (1.4-4.0); Lymphocytes % 13.3 % (21.2-54.2); Mean Corpuscular HGB Conc 30.5 GM/DL (32-36); Mean Corpuscular Volume 89.8 FL (87-102); Monocytes % 13.5 % (1.7-12.7); Neutrophils % 70.4 % (38.7-73.9); Platelet Count 139 T/CUMM (130-400); Red Blood Count 3.14 MC/CUMM (3.8-5.5); White Blood Count 8.6 T/CUMM (4-12)
[2019-06-19 05:55] LABS: Albumin 2.6 G/DL (3.4-5.0); Bilirubin,Total 0.8 MG/DL (0.2-1.0); Calcium 7.8 MG/DL (8.5-10.1); Osmolality,Calculated 274.8 MOS/KG (273-304); Total Protein 5.8 G/DL (6.4-8.3)
[2019-06-19] MEDS: LEVOTHYROXINE 75 MCG TABLET PO SCH (06:25)
[2019-06-19] MEDS: INSULIN REGULAR 100 UNIT/ML SUBCUT SCH ×4 (08:06→21:12)
[2019-06-19] MEDS: PANTOPRAZOLE 40 MG TABLET PO SCH ×2 (09:26→21:13)
[2019-06-19] MEDS: MAGNESIUM CHLORIDE 64 MG TABLET PO SCH ×2 (09:26→21:12)
[2019-06-19] MEDS: predniSONE 5 MG TABLET PO SCH (09:26)
[2019-06-19] MEDS: FUROSEMIDE 20 MG TABLET PO SCH (09:26)
[2019-06-19] MEDS ORDERED: SODIUM CHLORIDE 0.9% 1,000 ML IV PRN (10:28)
[2019-06-19] MEDS: TAMSULOSIN 0.4 MG CAPSULE PO SCH ×2 (12:02→21:13)
[2019-06-19] MEDS: SERTRALINE 50 MG TABLET PO SCH (18:56)
[2019-06-19] MEDS: LATANOPROST 0.005% OPH SOLN 2.5 ML BOTTLE BOTH EYES SCH (21:19)
[2019-06-20 05:44] LABS: Basophils % 0.2 % (0.0-0.8); Eosinophils # 0.2 10*3/uL (0.0-0.87); Eosinophils % 2.3 % (0.00-10.9); Hematocrit 31.2 VOL% (42.0-52.0); Hemoglobin 9.7 GM/DL (14.0-18.0); Immature Granulocytes % 0.3 %; Immature Granulocytes Absolute 0.03 #; Lymphocytes # 1.2 10*3/uL (1.4-4.0); Lymphocytes % 12.5 % (21.2-54.2); Mean Corpuscular HGB Conc 31.1 GM/DL (32-36); Mean Corpuscular Volume 87.4 FL (87-102); Mean Platelet Volume 10.5 FL (9.6-12.0); Monocytes % 16.4 % (1.7-12.7); Neutrophils % 68.3 % (38.7-73.9); Platelet Count 142 T/CUMM (130-400); Red Blood Count 3.57 MC/CUMM (3.8-5.5); Red Cell Distribution Width 15.8 % (9.3-17.3); White Blood Count 9.4 T/CUMM (4-12)
[2019-06-20 06:04] LABS: Albumin 2.6 G/DL (3.4-5.0); Bilirubin,Total 0.9 MG/DL (0.2-1.0); Calcium 7.8 MG/DL (8.5-10.1); Osmolality,Calculated 273.7 MOS/KG (273-304); Total Protein 5.8 G/DL (6.4-8.3)
[2019-06-20 06:06] LABS: Calcium 7.9 MG/DL (8.5-10.1); Osmolality,Calculated 279.3 MOS/KG (273-304)
[2019-06-20] MEDS: LEVOTHYROXINE 75 MCG TABLET PO SCH (06:12)
[2019-06-20] MEDS ORDERED: POTASSIUM CHLORIDE 20 MEQ TABLET PO ONE (07:19)
[2019-06-20] MEDS: INSULIN REGULAR 100 UNIT/ML SUBCUT SCH ×2 (07:41→12:32)
[2019-06-20 08:18] LABS: Atypical Lymphocytes Few; Lymphocytes 7 % (20-55); Platelet Estimate Adequate; Polychromasia Slight; Segmented Neutrophils 79 % (50-85); Total Cells Counted 100
[2019-06-20] MEDS ORDERED: AMIODARONE 200 MG TABLET PO SCH (09:00)
[2019-06-20] MEDS: predniSONE 5 MG TABLET PO SCH (09:02)
[2019-06-20] MEDS: MAGNESIUM CHLORIDE 64 MG TABLET PO SCH (09:02)
[2019-06-20] MEDS: TAMSULOSIN 0.4 MG CAPSULE PO SCH (09:03)
[2019-06-20] MEDS: FUROSEMIDE 20 MG TABLET PO SCH (09:03)
[2019-06-20] MEDS: PANTOPRAZOLE 40 MG TABLET PO SCH (09:04)
[2019-06-20 15:25] VITALS: BP 135/80
== END 2019-06-20 15:07 | disposition home health service (06) | DRG 378 ==
LOC: N.ED 15:31 → SUATTDRO 17:04 → N.EDINP 17:04 → N.5E 18:46
PROVIDERS: ADMIT Internal Medicine; ATTEND Internal Medicine Geriatric Medicine

== ENCOUNTER 2019-10-10 23:38 | Inpatient (IN) ==
[2019-10-11] MEDS ORDERED: methylPREDNISolone SOD SUC 125 MG/2 ML VIAL IV STA (00:12)
[2019-10-11] MEDS ORDERED: SODIUM CHLORIDE 0.9% 500 ML IV STA (00:12)
[2019-10-11] MEDS ORDERED: traMADol 50 MG TABLET PO STA (00:14)
[2019-10-11] MEDS ORDERED: KETOROLAC 30 MG/1 ML VIAL IM STA (00:14)
[2019-10-11 00:21] LABS: Basophils % 0.3 % (0.0-0.8); Eosinophils # 0.2 10*3/uL (0.0-0.87); Eosinophils % 1.3 % (0.00-10.9); Hematocrit 35.8 VOL% (42.0-52.0); Immature Granulocytes % 0.9 %; Lymphocytes # 1.4 10*3/uL (1.4-4.0); Lymphocytes % 11.7 % (21.2-54.2); Mean Corpuscular HGB Conc 30.7 GM/DL (32-36); Mean Corpuscular Volume 90.9 FL (87-102); Mean Platelet Volume 9.5 FL (9.6-12.0); Neutrophils % 72.8 % (38.7-73.9); Platelet Count 214 T/CUMM (130-400); Red Blood Count 3.94 MC/CUMM (3.8-5.5); Red Cell Distribution Width 16.8 % (9.3-17.3); White Blood Count 11.7 T/CUMM (4-12)
[2019-10-11] MEDS ORDERED: KETOROLAC 30 MG/1 ML VIAL IV STA (00:23)
[2019-10-11 00:26] LABS: INR 1.3; PT Patient Result 14.5 SECS (9.6-12.2)
[2019-10-11 00:34] LABS: Albumin 2.8 G/DL (3.4-5.0); Bilirubin,Total 0.7 MG/DL (0.2-1.0); Calcium 8.7 MG/DL (8.5-10.1); Osmolality,Calculated 288.7 MOS/KG (273-304); Total Protein 7.2 G/DL (6.4-8.3)
[2019-10-11] MEDS ORDERED: cefTRIAXone 1,000 MG in SODIUM CHLORIDE 0.9% 100 ML IV STA (00:50)
[2019-10-11] MEDS ORDERED: ALBUTEROL/IPRATROPIUM 3 ML NEB RESP TX STA (00:50)
[2019-10-11] MEDS ORDERED: FUROSEMIDE 20 MG/2 ML VIAL IV STA (00:50)
[2019-10-11] MEDS ORDERED: CALCIUM CHLORIDE 1,000 MG/10 ML SYRINGE IV STA (00:52)
[2019-10-11] MEDS ORDERED: MORPHINE 4 MG/1 ML VIAL IV PRN (01:26)
[2019-10-11] MEDS ORDERED: BISACODYL 5 MG TABLET PO PRN (01:26)
[2019-10-11] MEDS ORDERED: ACETAMINOPHEN 325 MG TABLET PO PRN (01:26)
[2019-10-11] MEDS ORDERED: guaiFENesin/DM ER 600-30 MG TABLET PO PRN (01:26)
[2019-10-11] MEDS ORDERED: GLUCAGON 1 MG VIAL IM PRN (01:26)
[2019-10-11] MEDS ORDERED: DEXTROSE 10% 250 ML BAG IV PRN (01:26)
[2019-10-11] MEDS ORDERED: diphenhydrAMINE CAP 25 MG CAPSULE PO PRN (01:26)
[2019-10-11] MEDS ORDERED: ONDANSETRON 4 MG/2 ML VIAL IV PRN (01:26)
[2019-10-11 01:34] LABS: Allen Test Positive
[2019-10-11 01:36] LABS: ABG Base Excess -3.3 MMOL/L (-2.5-2.5); ABG Oxygen Saturation 98.2 % (95-100); ABG PCO2 35.2 MM HG (35-48); ABG PH 7.394 (7.35-7.45); ABG PO2 117.8 MM HG (80-95); ABG TCO2 22.1 MMOL/L (23-27)
[2019-10-11 02:39] LABS: Risk Ratio 4.85; Thyroid Stimulating Hormone 5.47 uIU/ml (0.358-3.74); VLDL CHOLESTEROL 22.8 MG/DL
[2019-10-11] MEDS: ENOXAPARIN 60 MG/0.6 ML SYRINGE SUBCUT SCH ×2 (02:40→14:32)
[2019-10-11] MEDS ORDERED: traMADol 50 MG TABLET PO PRN (02:46)
[2019-10-11] MEDS ORDERED: NITROGLYCERIN SL 0.4 MG TABLET SL PRN (02:46)
[2019-10-11] MEDS ORDERED: METHOCARBAMOL 750 MG TABLET PO PRN (02:46)
[2019-10-11 03:26] LABS: Apearance,Urine CLEAR (Clear); Bilirubin,Urine Negative (Negative); Blood, Urine Negative (Negative); Glucose,Urine (UA) Negative (Negative); Hyaline Casts,Urine 4 /LPF (0-3); Ketones,Urine Negative (Negative); Mucus,Urine Occasional /LPF (Occasional); Nitrite,Urine Negative (Negative); Protein,Urine Negative; RBC,Urine <1 /HPF (0-4); Squamous Epithelial Cell,Urine Occasional /HPF (0-10); Urine Color Yellow (Yellow); Urine Specific Gravity 1.015 (1.001-1.035); Urine Urobilinogen < 2.0 EU/DL (0.2-1.0); WBC,Urine <1 /HPF (0-6)
[2019-10-11 04:39] LABS: Calcium 9.5 MG/DL (8.5-10.1); Osmolality,Calculated 289.5 MOS/KG (273-304)
[2019-10-11] MEDS: LEVOTHYROXINE 75 MCG TABLET PO SCH (06:13)
[2019-10-11 07:17] LABS: % Iron Saturation 5.8 % (18-50); Ferritin 194.1 ng/ml (26-388)
[2019-10-11] MEDS: ALBUTEROL/IPRATROPIUM 3 ML NEB RESP TX SCH ×3 (07:26→19:28)
[2019-10-11 08:27] LABS: Folate 14.3 NG/ML (5.4-24.0); Vitamin B12 > 2000 PG/ML (211-911)
[2019-10-11] MEDS ORDERED: FUROSEMIDE 20 MG TABLET PO SCH (09:00)
[2019-10-11] MEDS: INSULIN REGULAR 100 UNIT/ML SUBCUT SCH ×4 (11:18→21:03)
[2019-10-11] MEDS: FUROSEMIDE 40 MG/4 ML VIAL IV SCH ×2 (11:25→16:11)
[2019-10-11] MEDS: ENALAPRIL 5 MG TABLET PO SCH ×2 (11:26→21:05)
[2019-10-11] MEDS: MAGNESIUM CHLORIDE 64 MG TABLET PO SCH ×2 (11:26→21:05)
[2019-10-11] MEDS: ASPIRIN CHEW 81 MG TABLET PO SCH (11:26)
[2019-10-11] MEDS: TAMSULOSIN 0.4 MG CAPSULE PO SCH (11:26)
[2019-10-11] MEDS: POLYETHYLENE GLYCOL POWDER 17 GM PACK PO SCH (11:26)
[2019-10-11] MEDS ORDERED: TEMAZEPAM 15 MG CAPSULE PO PRN (13:15)
[2019-10-11] MEDS: AMIODARONE 200 MG TABLET PO SCH (14:32)
[2019-10-11] MEDS: AMIODARONE PO SCH (14:33)
[2019-10-11] MEDS: GABAPENTIN 100 MG CAPSULE PO SCH ×2 (16:12→21:05)
[2019-10-11] MEDS: LATANOPROST 0.005% OPH SOLN 2.5 ML BOTTLE BOTH EYES SCH (21:04)
[2019-10-11] MEDS: SERTRALINE 50 MG TABLET PO SCH (21:05)
[2019-10-12] MEDS: ALBUTEROL/IPRATROPIUM 3 ML NEB RESP TX SCH ×4 (01:45→19:21)
[2019-10-12 05:36] LABS: Basophils % 0.1 % (0.0-0.8); Eosinophils % 0.1 % (0.00-10.9); Hematocrit 33.2 VOL% (42.0-52.0); Hemoglobin 10.2 GM/DL (14.0-18.0); Immature Granulocytes % 0.5 %; Immature Granulocytes Absolute 0.07 #; Lymphocytes # 0.9 10*3/uL (1.4-4.0); Lymphocytes % 7.3 % (21.2-54.2); Mean Corpuscular HGB Conc 30.7 GM/DL (32-36); Mean Corpuscular Volume 91.2 FL (87-102); Mean Platelet Volume 9.8 FL (9.6-12.0); Monocytes % 12.6 % (1.7-12.7); NRBC # 0.02 10*3/uL; Neutrophils % 79.4 % (38.7-73.9); Platelet Count 196 T/CUMM (130-400); Red Blood Count 3.64 MC/CUMM (3.8-5.5); Red Cell Distribution Width 16.8 % (9.3-17.3); White Blood Count 12.9 T/CUMM (4-12)
[2019-10-12] MEDS: ENOXAPARIN 60 MG/0.6 ML SYRINGE SUBCUT SCH ×2 (05:51→15:10)
[2019-10-12] MEDS: LEVOTHYROXINE 75 MCG TABLET PO SCH (05:51)
[2019-10-12] MEDS: PANTOPRAZOLE 40 MG TABLET PO SCH (05:51)
[2019-10-12 06:11] LABS: Albumin 2.3 G/DL (3.4-5.0); Bilirubin,Total 0.5 MG/DL (0.2-1.0); Calcium 8.6 MG/DL (8.5-10.1); Osmolality,Calculated 286.3 MOS/KG (273-304); Total Protein 6.3 G/DL (6.4-8.3)
[2019-10-12] MEDS: ENALAPRIL 5 MG TABLET PO SCH ×2 (08:46→21:59)
[2019-10-12] MEDS: POLYETHYLENE GLYCOL POWDER 17 GM PACK PO SCH (08:46)
[2019-10-12] MEDS: NIACIN 500 MG TABLET PO SCH (08:46)
[2019-10-12] MEDS: AMIODARONE 200 MG TABLET PO SCH (08:47)
[2019-10-12] MEDS: TAMSULOSIN 0.4 MG CAPSULE PO SCH (08:47)
[2019-10-12] MEDS: MAGNESIUM CHLORIDE 64 MG TABLET PO SCH ×2 (08:48→21:59)
[2019-10-12] MEDS: ASPIRIN CHEW 81 MG TABLET PO SCH (08:48)
[2019-10-12] MEDS: FUROSEMIDE 40 MG/4 ML VIAL IV SCH ×2 (08:49→15:10)
[2019-10-12] MEDS: GABAPENTIN 100 MG CAPSULE PO SCH ×3 (08:49→21:59)
[2019-10-12] MEDS: AMIODARONE PO SCH (08:50)
[2019-10-12] MEDS: INSULIN REGULAR 100 UNIT/ML SUBCUT SCH ×4 (08:50→21:58)
[2019-10-12] MEDS ORDERED: cefTRIAXone 1,000 MG in SYRINGE 1 EACH IV ONE (09:04)
[2019-10-12] MEDS ORDERED: AZITHROMYCIN INJ 500 MG in SODIUM CHLORIDE 0.9% 250 ML IV ONE (09:04)
[2019-10-12] MEDS: SERTRALINE 50 MG TABLET PO SCH (22:00)
[2019-10-12] MEDS: cefTRIAXone 1,000 MG in SYRINGE 1 EACH IV SCH (22:14)
[2019-10-12] MEDS: LATANOPROST 0.005% OPH SOLN 2.5 ML BOTTLE BOTH EYES SCH (22:38)
[2019-10-13] MEDS: ALBUTEROL/IPRATROPIUM 3 ML NEB RESP TX SCH ×2 (00:17→07:29)
[2019-10-13] MEDS: ENOXAPARIN 60 MG/0.6 ML SYRINGE SUBCUT SCH (03:11)
[2019-10-13] MEDS: LEVOTHYROXINE 75 MCG TABLET PO SCH (06:22)
[2019-10-13] MEDS: PANTOPRAZOLE 40 MG TABLET PO SCH (06:22)
[2019-10-13 08:02] VITALS: BP 88/54
[2019-10-13] MEDS ORDERED: AZITHROMYCIN 250 MG TABLET PO SCH (09:00)
[2019-10-13] MEDS: FUROSEMIDE 40 MG/4 ML VIAL IV SCH (09:02)
[2019-10-13] MEDS: cefTRIAXone 1,000 MG in SYRINGE 1 EACH IV SCH (09:02)
[2019-10-13] MEDS: MAGNESIUM CHLORIDE 64 MG TABLET PO SCH (09:03)
[2019-10-13] MEDS: POLYETHYLENE GLYCOL POWDER 17 GM PACK PO SCH (09:03)
[2019-10-13] MEDS: ASPIRIN CHEW 81 MG TABLET PO SCH (09:03)
[2019-10-13] MEDS: INSULIN REGULAR 100 UNIT/ML SUBCUT SCH (09:03)
[2019-10-13] MEDS: TAMSULOSIN 0.4 MG CAPSULE PO SCH (09:04)
[2019-10-13] MEDS: GABAPENTIN 100 MG CAPSULE PO SCH (09:04)
[2019-10-13] MEDS: NIACIN 500 MG TABLET PO SCH (09:04)
[2019-10-13] MEDS: AMIODARONE 200 MG TABLET PO SCH (09:04)
[2019-10-13] MEDS: ENALAPRIL 5 MG TABLET PO SCH (10:17)
[2019-10-13] MEDS: AMIODARONE PO SCH (10:18)
== END 2019-10-13 12:01 | disposition home health service (06) | DRG 252 ==
LOC: EDBD → EDUNIT# → N.EDINP 23:38 → N.ED 23:38 → N.5E 10-11 02:13
PROVIDERS: ADMIT Hospitalist; ATTEND Hospitalist

== ENCOUNTER 2019-10-17 05:47 | Inpatient (IN) ==
[2019-10-17 06:43] LABS: Basophils % 0.2 % (0.0-0.8); Eosinophils # 0.2 10*3/uL (0.0-0.87); Eosinophils % 2.6 % (0.00-10.9); Hematocrit 39.2 VOL% (42.0-52.0); Hemoglobin 11.9 GM/DL (14.0-18.0); Immature Granulocytes % 0.5 %; Immature Granulocytes Absolute 0.05 #; Lymphocytes # 1.1 10*3/uL (1.4-4.0); Lymphocytes % 11.3 % (21.2-54.2); Mean Corpuscular HGB Conc 30.4 GM/DL (32-36); Mean Corpuscular Volume 90.5 FL (87-102); Mean Platelet Volume 9.9 FL (9.6-12.0); Neutrophils % 70.4 % (38.7-73.9); Platelet Count 227 T/CUMM (130-400); Red Blood Count 4.33 MC/CUMM (3.8-5.5); Red Cell Distribution Width 16.3 % (9.3-17.3); White Blood Count 9.3 T/CUMM (4-12)
[2019-10-17 06:57] LABS: Albumin 2.6 G/DL (3.4-5.0); Bilirubin,Total 0.9 MG/DL (0.2-1.0); Calcium 8.6 MG/DL (8.5-10.1); Osmolality,Calculated 275.8 MOS/KG (273-304); Total Protein 7.5 G/DL (6.4-8.3)
[2019-10-17] MEDS ORDERED: ONDANSETRON 4 MG/2 ML VIAL IV PRN (07:56)
[2019-10-17] MEDS ORDERED: ACETAMINOPHEN 325 MG TABLET PO PRN (07:56)
[2019-10-17] MEDS ORDERED: LACTULOSE 20 GM/30 ML UDCUP PO PRN (07:56)
[2019-10-17 08:47] LABS: Apearance,Urine CLEAR (Clear); Bilirubin,Urine Negative (Negative); Blood, Urine Negative (Negative); Glucose,Urine (UA) Negative (Negative); Hyaline Casts,Urine 1 /LPF (0-3); Ketones,Urine 5 mg/dL (Negative); Mucus,Urine Occasional /LPF (Occasional); Nitrite,Urine Negative (Negative); Protein,Urine 30 MG/DL; RBC,Urine 3 /HPF (0-4); Urine Color Yellow (Yellow); Urine Specific Gravity 1.018 (1.001-1.035); Urine Urobilinogen < 2.0 EU/DL (0.2-1.0); WBC,Urine 1 /HPF (0-6)
[2019-10-17] MEDS: PANTOPRAZOLE 40 MG TABLET PO SCH (09:30)
[2019-10-17] MEDS: ENOXAPARIN 40 MG/0.4 ML SYRINGE SUBCUT SCH (09:30)
[2019-10-17] MEDS ORDERED: CYCLOBENZAPRINE 10 MG TABLET PO PRN (09:58)
[2019-10-17] MEDS ORDERED: NITROGLYCERIN SL 0.4 MG TABLET SL PRN (09:58)
[2019-10-17] MEDS: traMADol 50 MG TABLET PO SCH ×2 (10:25→21:05)
[2019-10-17] MEDS: NIACIN 500 MG TABLET PO SCH (10:25)
[2019-10-17] MEDS: FUROSEMIDE 40 MG/4 ML VIAL IV SCH (10:25)
[2019-10-17] MEDS: ENALAPRIL 5 MG TABLET PO SCH ×2 (10:25→21:06)
[2019-10-17] MEDS: ASPIRIN CHEW 81 MG TABLET PO SCH (10:26)
[2019-10-17] MEDS: AMIODARONE 200 MG TABLET PO SCH (10:26)
[2019-10-17] MEDS: POLYETHYLENE GLYCOL POWDER 17 GM PACK PO SCH (10:26)
[2019-10-17] MEDS: POTASSIUM CHLORIDE 20 MEQ TABLET PO SCH (10:26)
[2019-10-17] MEDS: ALBUTEROL/IPRATROPIUM 3 ML NEB RESP TX SCH ×2 (14:00→19:37)
[2019-10-17] MEDS ORDERED: DEXTROSE 50% 25 GM/50 ML VIAL IV PRN (15:22)
[2019-10-17] MEDS ORDERED: GLUCAGON 1 MG VIAL IM PRN (15:22)
[2019-10-17] MEDS: INSULIN REGULAR 100 UNIT/ML SUBCUT SCH ×2 (17:03→21:06)
[2019-10-17] MEDS: SERTRALINE 50 MG TABLET PO SCH (18:52)
[2019-10-17] MEDS: LATANOPROST 0.005% OPH SOLN 2.5 ML BOTTLE BOTH EYES SCH (21:05)
[2019-10-17] MEDS: DOCUSATE/SENNA 50-8.6 MG TABLET PO SCH (21:05)
[2019-10-18 05:39] LABS: Basophils % 0.5 % (0.0-0.8); Eosinophils # 0.4 10*3/uL (0.0-0.87); Eosinophils % 4.1 % (0.00-10.9); Hematocrit 33.1 VOL% (42.0-52.0); Immature Granulocytes % 0.8 %; Immature Granulocytes Absolute 0.07 #; Lymphocytes # 1.4 10*3/uL (1.4-4.0); Lymphocytes % 16.1 % (21.2-54.2); Mean Corpuscular HGB Conc 30.2 GM/DL (32-36); Mean Corpuscular Volume 91.7 FL (87-102); Mean Platelet Volume 9.9 FL (9.6-12.0); Monocytes % 15.5 % (1.7-12.7); Platelet Count 212 T/CUMM (130-400); Red Blood Count 3.61 MC/CUMM (3.8-5.5); Red Cell Distribution Width 16.3 % (9.3-17.3); White Blood Count 8.7 T/CUMM (4-12)
[2019-10-18 06:17] LABS: Calcium 8.2 MG/DL (8.5-10.1); Osmolality,Calculated 276.8 MOS/KG (273-304)
[2019-10-18] MEDS: INSULIN REGULAR 100 UNIT/ML SUBCUT SCH ×4 (07:26→21:57)
[2019-10-18] MEDS: ENOXAPARIN 40 MG/0.4 ML SYRINGE SUBCUT SCH (07:28)
[2019-10-18] MEDS: ALBUTEROL/IPRATROPIUM 3 ML NEB RESP TX SCH ×3 (07:40→19:36)
[2019-10-18] MEDS: AMIODARONE 200 MG TABLET PO SCH (08:21)
[2019-10-18] MEDS: ENALAPRIL 5 MG TABLET PO SCH ×2 (08:21→21:56)
[2019-10-18] MEDS: traMADol 50 MG TABLET PO SCH ×2 (08:21→21:57)
[2019-10-18] MEDS: FUROSEMIDE 40 MG/4 ML VIAL IV SCH (08:21)
[2019-10-18] MEDS: CHOLECALCIFEROL 1,000 UNIT TABLET PO SCH (08:41)
[2019-10-18] MEDS: NIACIN 500 MG TABLET PO SCH (08:41)
[2019-10-18] MEDS: ASPIRIN CHEW 81 MG TABLET PO SCH (08:41)
[2019-10-18] MEDS: PANTOPRAZOLE 40 MG TABLET PO SCH (08:41)
[2019-10-18] MEDS: POLYETHYLENE GLYCOL POWDER 17 GM PACK PO SCH (08:41)
[2019-10-18] MEDS: POTASSIUM CHLORIDE 20 MEQ TABLET PO SCH (08:41)
[2019-10-18] MEDS ORDERED: LIDOCAINE 2% 5 ML VIAL ONE ×3 (10:49→11:58)
[2019-10-18] MEDS ORDERED: LACTATED RINGERS 1,000 ML IV SCH (11:30)
[2019-10-18] MEDS ORDERED: TISSUE ADHESIVE 1 EACH APPLICATOR TOP ONE (11:48)
[2019-10-18] MEDS ORDERED: KETAMINE 500 MG/10 ML VIAL ONE (11:58)
[2019-10-18] MEDS ORDERED: ETOMIDATE 40 MG/20 ML VIAL IV ONE (11:59)
[2019-10-18] MEDS: SERTRALINE 50 MG TABLET PO SCH (20:13)
[2019-10-18] MEDS: DOCUSATE/SENNA 50-8.6 MG TABLET PO SCH (21:57)
[2019-10-18] MEDS: LATANOPROST 0.005% OPH SOLN 2.5 ML BOTTLE BOTH EYES SCH (21:59)
[2019-10-19 06:52] LABS: Basophils % 0.4 % (0.0-0.8); Eosinophils # 0.3 10*3/uL (0.0-0.87); Eosinophils % 2.6 % (0.00-10.9); Hematocrit 33.2 VOL% (42.0-52.0); Hemoglobin 10.1 GM/DL (14.0-18.0); Immature Granulocytes % 0.9 %; Lymphocytes # 1.3 10*3/uL (1.4-4.0); Lymphocytes % 11.2 % (21.2-54.2); Mean Corpuscular HGB Conc 30.4 GM/DL (32-36); Mean Corpuscular Volume 92.5 FL (87-102); Mean Platelet Volume 9.7 FL (9.6-12.0); Monocytes % 15.3 % (1.7-12.7); Neutrophils % 69.6 % (38.7-73.9); Platelet Count 219 T/CUMM (130-400); Red Blood Count 3.59 MC/CUMM (3.8-5.5); Red Cell Distribution Width 16.4 % (9.3-17.3); White Blood Count 11.2 T/CUMM (4-12)
[2019-10-19] MEDS: ALBUTEROL/IPRATROPIUM 3 ML NEB RESP TX SCH ×3 (06:58→19:27)
[2019-10-19 07:04] LABS: Calcium 8.4 MG/DL (8.5-10.1); Osmolality,Calculated 273.7 MOS/KG (273-304)
[2019-10-19] MEDS: INSULIN REGULAR 100 UNIT/ML SUBCUT SCH ×4 (09:41→21:25)
[2019-10-19] MEDS: NIACIN 500 MG TABLET PO SCH (09:43)
[2019-10-19] MEDS: CHOLECALCIFEROL 1,000 UNIT TABLET PO SCH (09:43)
[2019-10-19] MEDS: ENALAPRIL 5 MG TABLET PO SCH ×2 (09:43→21:25)
[2019-10-19] MEDS: AMIODARONE 200 MG TABLET PO SCH (09:44)
[2019-10-19] MEDS: traMADol 50 MG TABLET PO SCH ×2 (09:44→21:24)
[2019-10-19] MEDS: POTASSIUM CHLORIDE 20 MEQ TABLET PO SCH (09:44)
[2019-10-19] MEDS: PANTOPRAZOLE 40 MG TABLET PO SCH (09:45)
[2019-10-19] MEDS: ASPIRIN CHEW 81 MG TABLET PO SCH (09:45)
[2019-10-19] MEDS: FUROSEMIDE 40 MG/4 ML VIAL IV SCH (09:45)
[2019-10-19] MEDS: POLYETHYLENE GLYCOL POWDER 17 GM PACK PO SCH (10:20)
[2019-10-19] MEDS ORDERED: FUROSEMIDE 40 MG/4 ML VIAL IV ONE (18:51)
[2019-10-19] MEDS: SERTRALINE 50 MG TABLET PO SCH (21:24)
[2019-10-19] MEDS: DOCUSATE/SENNA 50-8.6 MG TABLET PO SCH (21:25)
[2019-10-19] MEDS: LATANOPROST 0.005% OPH SOLN 2.5 ML BOTTLE BOTH EYES SCH (21:25)
[2019-10-20 05:03] LABS: Basophils # 0.1 10*3/uL (0.0-0.2); Basophils % 0.4 % (0.0-0.8); Eosinophils # 0.2 10*3/uL (0.0-0.87); Hematocrit 33.9 VOL% (42.0-52.0); Hemoglobin 10.2 GM/DL (14.0-18.0); Immature Granulocytes % 0.8 %; Immature Granulocytes Absolute 0.09 #; Lymphocytes # 1.3 10*3/uL (1.4-4.0); Lymphocytes % 11.1 % (21.2-54.2); Mean Corpuscular HGB Conc 30.1 GM/DL (32-36); Mean Corpuscular Volume 90.9 FL (87-102); Mean Platelet Volume 9.2 FL (9.6-12.0); Monocytes % 14.6 % (1.7-12.7); Neutrophils % 71.1 % (38.7-73.9); Platelet Count 224 T/CUMM (130-400); Red Blood Count 3.73 MC/CUMM (3.8-5.5); Red Cell Distribution Width 16.3 % (9.3-17.3); White Blood Count 11.5 T/CUMM (4-12)
[2019-10-20 05:26] LABS: Calcium 8.1 MG/DL (8.5-10.1); Osmolality,Calculated 275.7 MOS/KG (273-304)
[2019-10-20] MEDS: INSULIN REGULAR 100 UNIT/ML SUBCUT SCH ×2 (07:14→13:00)
[2019-10-20] MEDS: ALBUTEROL/IPRATROPIUM 3 ML NEB RESP TX SCH (08:19)
[2019-10-20] MEDS: POLYETHYLENE GLYCOL POWDER 17 GM PACK PO SCH (09:04)
[2019-10-20] MEDS: ENOXAPARIN 40 MG/0.4 ML SYRINGE SUBCUT SCH (09:05)
[2019-10-20] MEDS: FUROSEMIDE 40 MG/4 ML VIAL IV SCH (09:05)
[2019-10-20] MEDS: AMIODARONE 200 MG TABLET PO SCH (09:06)
[2019-10-20] MEDS: CHOLECALCIFEROL 1,000 UNIT TABLET PO SCH (09:07)
[2019-10-20] MEDS: NIACIN 500 MG TABLET PO SCH (09:07)
[2019-10-20] MEDS: PANTOPRAZOLE 40 MG TABLET PO SCH (09:07)
[2019-10-20] MEDS: traMADol 50 MG TABLET PO SCH (09:07)
[2019-10-20] MEDS: ASPIRIN CHEW 81 MG TABLET PO SCH (09:07)
[2019-10-20] MEDS: POTASSIUM CHLORIDE 20 MEQ TABLET PO SCH (09:07)
[2019-10-20] MEDS: ENALAPRIL 5 MG TABLET PO SCH (09:07)
[2019-10-20 11:28] VITALS: BP 139/77
== END 2019-10-20 13:45 | disposition swing bed (61) | DRG 515 ==
LOC: EDUNIT# → EDBD → N.EDINP 05:47 → N.ED 05:47 → N.EDINP 08:55 → N.3E 09:08
PROVIDERS: ADMIT Hospitalist; ATTEND Hospitalist